=== PATIENT | male | born 1955 | race African-American/Black ===

== ENCOUNTER 2021-09-01 14:20 | Inpatient (IN) | payer OTHER ==
--- OUTSIDE RECORDS SUMMARY | 2021-09-01 15:01 | XMS REPORT | Continuity of Care Document ---
:1955 Author Organization [facility] Address [address] [place] [address] Care Team Providers Name Role Phone Sara Hoffman Attending Clinician Unavailable Larisa Johnston Attending Clinician Unavailable Problems Condition Condition Condition Status Onset Resolution Last Treating Co mments Source Name Details Category Date Date Treatment Clinician Date Diabetes Diabetes Problem [facility] Hypertensi Hypertensi Problem Active [facility] Dysuria Dysuria Problem [facility] Other Other Problem Active [facility] Pain in Pain in Problem Active [facility] right [facility] ankle and ankle and [place] [facility] of joints of l right foot right foot [facility] Overweight Overweight Problem Active [facility] Allergies, Adverse Reactions, Alerts This patient has no known allergies or adverse reactions. Medications Ordered Filled Start Stop Current Ordering Indication Dosage Frequency Signature Comments Components Source Medication Medication Date Date Medication? Clinician (SIG) Name Name Losartan Losartan Yes Larisa [address] [facility] Potassium Potassium 3-17 Mill[facility] Procedures This patient has no known procedures. Encounters Start End Encounter Admission Attending Care Care Encounter Source Date/Time Date/Time Type Type Clinicians Facility Department ID 2021-08-21 Outpatient OMKAR Hoffman [facility] [id number] [facility] [address] 15[facility]01 [facility] 2021-08-16 Out[facility] [id number] [facility] [address] 14[facility]07[facility]00 [facility] 2021-08-15 Out[facility] [id number] [facility] 2021-08-13 Outpatient Carline [facility] [id number] [address] 10:38:01 Larisa [facility]ano [facility] 2021-06-26 Outpatient Emili [facility] [id number] 11:19:32 [facility] 2021-06-26 Outpatient Emili, [facility] [id number] 11:06:28 Larisa [id number] [facility] 2019-08-12 2019-08-12 [facility] [id number] 10:22:00 10:22:00 [facility] 2019-07-08 2019-07-08 [facility] [id number] [address] 16:15:00 16:15:00 [facility] Results This patient has no known results.
[2021-09-01 15:21] VITALS: BMI 28.1
--- NOTE | 2021-09-01 16:13 | P.HP ---
Certification for Inpatient Patient admitted to: Inpatient With expected LOS: <2 Midnights Practitioner: I am a practitioner with admitting privileges, knowledge of patient current condition, hospital course, and medical plan of care. Services: Services provided to patient in accordance with Admission requirements found in Title 42 Section 412.3 of the Code of Federal Regulations Patient History Date of Service: 09/01/21 Reason for admission: Shortness of breath History of Present Illness: Patient is 66 years of age has been complaining of progressive dyspnea with orthopnea for the past month he became acutely worse ended up at the EMERGENCY room and was transferred here with a diagnosis of congestive heart failure no prior cardiac history Allergies No Known Allergies Allergy (Unverified 09/01/21 15:23) Home Medications: Furosemide [Lasix] 20 mg PO DAILY 09/01/21 Losartan Potassium 1 tab PO DAILY 09/01/21 Metformin HCl 1 tab PO Q12H 09/01/21 - Past Medical/Surgical History Has patient received pneumonia vaccine in the past: No -: Hypertension -: Diabetes -: leg surgery- has metal -: back surgery - Social History Smoking Status: Never smoker Place of Residence: Home Review of Systems 10-point ROS is otherwise unremarkable Physical Examination - Vital Signs Temperature: 97.4 F Blood Pressure: 150/80 Pulse: 92 Pulse Ox (%): 99 - Physical Exam General: Alert, Oriented x3 Neck: Supple Respiratory: Crackles/rales Cardiovascular: No edema, Normal S1 S2 Assessment and Plan - Problems (Diagnosis) (1) CHF (congestive heart failure), NYHA class II Current Visit: Yes Status: Acute Qualifiers: Congestive heart failure chronicity: unspecified - Plan Age 66 AW CHF/ CXRY report from [facility] rev.Labs normal. Progressive dyspnea. Much better/ Repeat labs am. Card consult/Meds reconcilled - Advance Directives Does patient have a Living Will: No Does patient have a Durable POA for Healthcare: No
[2021-09-01] MEDS ORDERED: TEMAZEPAM 15 MG CAP PO PRN (20:04)
[2021-09-01] MEDS ORDERED: LOSARTAN/HCTZ 50-12.5 PO SCH (20:19)
[2021-09-01] MEDS ORDERED: FUROSEMIDE 20 MG/ 2ML VIAL IV ONE (20:21)
[2021-09-01] MEDS ORDERED: GLUCAGON 1 MG/VIAL IM PRN (20:49)
[2021-09-01] MEDS ORDERED: D50W 25 GM/50 ML SYRINGE IV PRN (20:49)
[2021-09-01] MEDS: INSULIN -REGULAR HUMAN 50 UNIT/0.5 ML ML SQ SCH (22:05)
[2021-09-01] MEDS: TEMAZEPAM 15 MG CAP PO PRN (22:06)
[2021-09-02 05:03] LABS: Albumin 3.4 g/dL (3.4-5.0); Bilirubin Total 0.7 mg/dL (0.2-1.0); Potassium 3.6 mmol/L (3.5-5.1); Protein, Total 6.7 g/dL (6.4-8.2)
--- NOTE | 2021-09-02 08:10 | RAD REPORT ---
EXAM DESCRIPTION: RAD - Chest Single View - 09/02/2021 5:57 am CLINICAL HISTORY: chf Chest pain. COMPARISON: No comparisons FINDINGS: Portable technique limits examination quality. Moderate bilateral pulmonary opacities are present with bilateral pleural effusions. The heart is mod erately enlarged. No displaced fractures. IMPRESSION: Moderate CHF pattern.
[2021-09-02] MEDS: METFORMIN HCL 500 MG TAB PO SCH ×2 (08:16→16:06)
[2021-09-02] MEDS: INSULIN -REGULAR HUMAN 50 UNIT/0.5 ML ML SQ SCH ×4 (08:30→21:00)
[2021-09-02] MEDS ORDERED: HOME MED 1 EA UNK (Losartan Potassium [Losartan Potassium] 25 MG Tablet) PO SCH (09:00)
[2021-09-02] MEDS ORDERED: FUROSEMIDE 20 MG TABLET PO SCH (09:00)
--- NOTE | 2021-09-02 09:31 | P.PN ---
Subjective Date of Service: 09/02/21 Continue with diuresing. Review of Systems 10-point ROS is otherwise unremarkable Physical Examination - Vital Signs Temperature: 97.4 F Blood Pressure: 152/102 Pulse: 90 Respirations: 16 Pulse Ox (%): 99 - Physical Exam General: Alert, In no apparent distress, Oriented x3 HEENT: Atraumatic, PERRLA, EOMI Neck: Supple, JVD not distended Respiratory: Clear to auscultation bilaterally, Normal air movement Cardiovascular: Regular rate/rhythm, Normal S1 S2 Gastrointestinal: Normal bowel sounds, No tenderness Musculoskeletal: No tenderness Integumentary: No rashes Neurological: Normal speech, Normal tone, Normal affect Lymphatics: No axilla or inguinal lymphadenopathy - Studies Laboratory Data (last 24 hrs) 09/02/21 04:32: Sodium 143, Potassium 3.6, BUN 21 H, Creatinine 1.06, Glucose 87, Total Bilirubin 0.7, AST 12 L, ALT 66, Alkaline Phosphatase 55 Medications List Reviewed: Yes Assessment & Plan - Problems (Diagnosis) (1) CHF (congestive heart failure), NYHA class II Current Visit: Yes Status: Acute Qualifiers: Congestive heart failure chronicity: unspecified (2) Hypertension Current Visit: Yes Status: Acute (3) Type 2 diabetes mellitus Current Visit: Yes Status: Acute - Plan PLAN: 1. Echocardiogram 2. Out of bed and ambulate 4. Cardiology consultation pending 5. Aggressive diuresis 6. Strict I's and O's 7. Repeat CXR 8. Daily weights 9. Education regarding diet and treatment of congestive heart failure Discharge Plan: Home Plan to discharge in: Greater than 2 days - Advance Directives Does patient have a Living Will: No Does patient have a Durable POA for Healthcare: No - Code Status/Comfort Care Code Status Assessed: Yes Code Status: Full Code Critical Care: No Time Spent Managing PTS Care (In Minutes): 45
--- NOTE | 2021-09-02 14:28 | ECHO ---
HEIGHT: 5 ft 7 in WEIGHT: 180 lb 0 oz DATE OF STUDY: 09/02/[address]: Josue Ndiaye MD 2-DIMENSIONAL: YES M.MODE: YES DOPPLER: YES COLOR FLOW: YES TDS: PORTABLE: DEFINITY: BUBBLE STUDY: DIAGNOSIS: CONGESTIVE HEART FAILURE CARDIAC HISTORY: CATHERIZATION: NO SURGERY: NO PROSTHETIC VALVE: NO PACEMAKER: NO MEASUREMENTS (cm) DIASTOLIC (NORMALS) SYSTOLIC (NORMALS) IVSd 1.2 (0.6-1.2) LA Diam 3.8 (1.9-4.0) LVEF 30-40% LVIDd 63.1 (3.5-5.7) LVIDs 5.3 (2.0-3.5) %FS 13% LVPWd 1.3 (0.6-1.2) Ao Diam 2.7 (2.0-3.7) 2 DIMENSIONAL ASSESSMENT: RIGHT ATRIUM: NORMAL LEFT ATRIUM: NORMAL RIGHT VENTRICLE: NORMAL LEFT VENTRICLE: DILATED TRICUSPID VALVE: NORMAL MITRAL VALVE: MILD MITRAL REGURGITATION PULMONIC VALVE: MILD PULMONIC INSUFFICIENCY AORTIC VALVE: MODERATE AORTIC INSUFFICIENCY PERICARDIAL EFFUSION: SMALL AORTIC ROOT: NORMAL LEFT VENTRICULAR WALL MOTION: MODERATE GLOBAL HYPOKINESIS DOPPLER/COLOR FLOW: SEE BELOW COMMENTS: MODERATELY DEPRESSED LEFT VENTRICULAR EJECTION FRACTION 35-40% WITH MODERATE GLOBAL HYPOKINESIS. MODERATE DIASTOLIC DYSFUNCTION. MILD MITRAL REGURGITATION, MILD PULMONIC INSUFFICIENCY, MODERATE AORTIC INSUFFICIENCY. SMALL PERICARDIAL EFFUSION. TECHNOLOGIST: GIANCARLO GARCIA
[2021-09-02] MEDS ORDERED: ALBUMIN HUMAN 25% 50 ML IV ONE (15:00)
[2021-09-02] MEDS ORDERED: FUROSEMIDE 40 MG/4 ML VIAL IV ONE (15:00)
[2021-09-02] MEDS ORDERED: D10W 250 ML BAG IV PRN (16:00)
[2021-09-02] MEDS ORDERED: FUROSEMIDE 40 MG/4 ML VIAL IV SCH (20:00)
[2021-09-02] MEDS: LOSARTAN POTASSIUM 50 MG TABLET PO SCH (21:18)
[2021-09-02] MEDS: TEMAZEPAM 15 MG CAP PO PRN (21:19)
[2021-09-02] MEDS: METOPROLOL TAR 50 MG TAB PO SCH (21:19)
[2021-09-03] MEDS: FUROSEMIDE 20 MG/ 2ML VIAL IV SCH ×3 (01:02→16:36)
[2021-09-03 06:26] LABS: Hematocrit 41.9 % (39.6-49.0); Lymphocytes % 24.5 % (15.3-44.8); MPV 9.3 fL (7.6-11.3); RBC Red Blood Cell Count 4.92 M/uL (4.33-5.43)
[2021-09-03] MEDS ORDERED: PANTOPRAZOLE 40 MG INJ IVP ONE (06:27)
[2021-09-03] MEDS ORDERED: SODIUM CHLORIDE 0.9% 10ML INJ IV ONE (06:29)
[2021-09-03] MEDS ORDERED: MORPHINE 2 MG/ML SYR IV ONE (06:29)
[2021-09-03 06:58] LABS: Albumin 3.4 g/dL (3.4-5.0); Bilirubin Total 0.6 mg/dL (0.2-1.0); Magnesium 2.1 mg/dL (1.8-2.4); Potassium 3.6 mmol/L (3.5-5.1); Protein, Total 6.5 g/dL (6.4-8.2)
[2021-09-03] MEDS: INSULIN -REGULAR HUMAN 50 UNIT/0.5 ML ML SQ SCH ×3 (07:30→16:03)
--- NOTE | 2021-09-03 08:02 | RAD REPORT ---
EXAM DESCRIPTION: Mansi Single View09/03/2021 5:36 am CLINICAL HISTORY: Shortness of breath COMPARISON: September 02, 2021 FINDINGS: Bilateral pulmonary opacities have partially resolved. Small bilateral pleural effusions. Heart remains enlarged IMPRESSION: Improvement in suspected CHF
[2021-09-03] MEDS: LOSARTAN POTASSIUM 50 MG TABLET PO SCH (10:36)
[2021-09-03] MEDS: METFORMIN HCL 500 MG TAB PO SCH ×2 (10:36→16:36)
[2021-09-03] MEDS: METOPROLOL TAR 50 MG TAB PO SCH (10:36)
[2021-09-03 12:25] VITALS: BP 144/97; TEMP 97.2
[2021-09-03 15:16] VITALS: O2SAT 97
--- NOTE | 2021-09-04 16:41 | EKG ---
Test Date: 2021-09-03 Test Time: 05:40:32 Camp Attendant: PV MEASUREMENT RESULTS: Intervals: Rate: 81 OR: 196 QRSD: 108 QT: 448 QTc: 520 [place]: P: 49 OR: 196 QRS: -11 T: 227 INTERPRETIVE STATEMENTS: Sinus rhythm with occasional premature ventricular complexes Possible Left atrial enlargement Left ventricular hypertrophy Cannot rule out Septal infarct, age undetermined Marked T wave abnormality, consider inferolateral ischemia Prolonged QT Abnormal ECG No previous ECG available for comparison Electronically Signed On 09-04-21 16:40:20 CDT by Juliocesar Hernandez
--- NOTE | 2021-09-05 16:11 | CON ---
Date of Consultation: 09/02/2021 Admitted on 09/01/[address] Ortiz. I saw the patient on 09/02/2021. Reason For Consultation: Congestive heart failure. History Of Present Illness: Mr. Huston a patient of 66. Has a history of hypertension, diabetes. Comes in with new onset congestive heart failure, shortness of breath, PND, orthopnea, pedal edema. Denied any chest pain, nausea, vomiting, diaphoresis. Denied any palpitation or syncope. Denied any fever or chills. Past Medical History: Hypertension and diabetes. Allergies: NONE. Review of Systems: Negative. Social History: Negative. Family History: Noncontributory. Medications: At home include Lasix, metformin, and losartan. Physical Examination: Vital Signs: Blood pressure is 150/102. HEENT: Negative. General: The patient is in sinus rhythm. No acute distress. Afebrile. Chest: Revealed some rales at bases. Cardiac: Revealed a regular rhythm and rate with S4 gallops. Abdomen: Benign. Extremities: Revealed no clubbing, cyanosis, edema. Diagnostic Data: Chest x-ray showed CHF. Glucose was 339. Rest of the blood work is unremarkable. Impression And Plan: New onset congestive heart failure, probably diastolic. Continue IV Lasix. Co ntinue metformin. Continue losartan. He needs to be on carvedilol. Discontinue hydrochlorothiazide . Echocardiogram is pending. He will need an outpatient Lexiscan and visit after he goes home. TENZIN/JANA Voice ID: [id number] Report ID: [id number]
--- NOTE | 2021-09-06 11:36 | PN ---
Date of Progress Note: 09/03/2021 The patient came in with new-onset congestive heart failure. IV Lasix, metformin, and losartan have been started. Echocardiogram showed an ejection fraction of 35% with moderate global hypokinesis, mi ld aortic regurgitation, mitral regurgitation, small pericardial effusion. I think we need to discon tinue hydrochlorothiazide. Continue metformin and losartan. He needs to be on carvedilol and needs to have an outpatient Lexiscan and a visit to the office after he goes home. TENZIN/JANA Voice ID: [id number] Report ID: [id number]
== END 2021-09-03 16:30 | disposition home or self-care (01) | DRG 291 ==
LOC: 2ND 14:20
PROVIDERS: ADMIT Internal Medicine Sleep Medicine; ATTEND Hospitalist
DX: I11.0 Hypertensive heart disease with heart failure (principal); I50.21 Acute systolic (congestive) heart failure; E44.0 Moderate protein-calorie malnutrition; E11.9 Type 2 diabetes mellitus without complications; Z79.84 Long term (current) use of oral hypoglycemic drugs; Z79.899 Other long term (current) drug therapy; Z68.28 Body mass index [BMI] 28.0-28.9, adult
CPT/HCPCS: 36415; 71045; 80053; 82947; 83735; 83880; 84484; 85025; 93005; 93306; C9113; J1940; J2270; P9047